=== PATIENT | male | born 1945 | race Two or more races ===

== ENCOUNTER 2016-08-15 19:12 | Emergency (ER) | payer MEDICARE, MEDICAID ==
[~2016-08-15] VITALS: Ht 172.7 cm; Wt 99.8 kg
[~2016-08-15 19:12] MED LIST: CARV25TA55 PO; LISIPOW PO; LOVA40TA72 PO; PHEN100C70 PO; PHEN32.49 PO; PREVASTATIN PO; PRIM250T29 PO; TIMO0.5S3 EACHEYE; TRAV0.00 EACHEYE
[2016-08-15 22:44] VITALS: BP 156/101
[2016-08-15] MEDS ORDERED: LET TOPICAL SOLN 5 ML TOP ONE (23:00)
[2016-08-16] MEDS ORDERED: BACITRACIN TOP OINT 1 UD PKG TOP ONE
[2016-08-16] MEDS ORDERED: HYDROcodone-ACET 10/325MG TAB PO ONE
== END 2016-08-16 01:07 | disposition home or self-care (01) ==
LOC: EDBD 19:12 → ER 19:20
DX: S01.01XA Laceration without foreign body of scalp, initial encounter (principal); J45.909 Unspecified asthma, uncomplicated; I10 Essential (primary) hypertension; H54.0 Blindness, both eyes; Z79.899 Other long term (current) drug therapy; W18.39XA Other fall on same level, initial encounter; Y93.89 Activity, other specified; Y92.89 Other specified places as the place of occurrence of the external cause; Y99.8 Other external cause status
CPT/HCPCS: 12002; 70450; 99284; J3490

== ENCOUNTER 2017-01-25 14:31 | Observation (INO) | payer MEDICARE, MEDICAID ==
[~2017-01-25] VITALS: Ht 175.3 cm; Wt 99.8 kg
[2017-01-25 15:23] LABS: Basophils # (auto) 0.1 uL; Basophils % (auto) 1.2 % (0.0-2.0); Eosinophils # (auto) 0.9 uL; Hematocrit 37.5 % (41.0-53.0); Hemoglobin 12.7 g/dL (13.5-17.5); Lymphocytes # (auto) 1.8 uL; Lymphocytes % (auto) 22.1 % (10.0-50.0); Mean Corpuscular Hemoglobin 32.1 pg (28.0-32.0); Mean Corpuscular Hgb Conc. 33.9 g/dL (32.0-36.0); Mean Corpuscular Volume 94.8 fL (80.0-100.0); Mean Platelet Volume 7.8 fL (6.9-10.8); Monocytes % (auto) 11.5 % (0.0-12.0); Neutrophils # (auto) 4.5 uL; Neutrophils % (auto) 54.2 % (37.0-80.0); Nucleated Red Blood Cells % 0.1 %; Platelet Count (auto) 222 10^3/uL (140-450); Red Cell Distribution Width 13.9 % (11.8-14.3); White Blood Cell 8.3 10^3/uL (4.4-10.8)
[2017-01-25 15:46] LABS: Albumin 3.1 g/dL (3.4-5.0); BUN/Creatinine Ratio 12.5; Bilirubin, Total 0.3 mg/dL (0.2-1.0); Calcium 8.1 mg/dL (8.5-10.1); Potassium 4.1 mmol/L (3.5-5.1); Total Protein 7.3 g/dL (6.4-8.2)
[2017-01-25 17:22] LABS: INR 1.01 (0.9-1.15); Partial Thromboplastin Time 27.4 sec (22.64-33.71)
[2017-01-25] MEDS ORDERED: SODIUM CHLORIDE 0.9% 1,000 ML IV ONE (17:45)
[2017-01-25] MEDS ORDERED: KETOROLAC TROMETH 30 MG/ML 1ML VIAL IV ONE (18:00)
[2017-01-25 20:39] LABS: Urine Bilirubin Negative (Negative); Urine Blood Negative /uL (Negative); Urine Color Yellow (Yellow); Urine Glucose Normal (Normal); Urine Ketone Negative (Negative); Urine Mucus FEW (None Seen); Urine Nitrite Negative (Negative); Urine RBC <1 /hpf (0 - 3); Urine Squamous Epithelial Cell FEW /hpf (<5); Urine Urobilinogen Normal (Negative); Urine pH 5.5 (5.0-8.0)
[2017-01-25 22:01] VITALS: BP 163/80
== END 2017-01-25 22:28 | disposition home or self-care (01) | DRG 694 ==
LOC: EDBD 14:31 → ER 14:42 → OVERFLOW 16:58 → ER 22:28
PROVIDERS: ADMIT Family Medicine; ATTEND Family Medicine
DX: N20.0 Calculus of kidney (principal); D64.9 Anemia, unspecified; I11.9 Hypertensive heart disease without heart failure; E78.5 Hyperlipidemia, unspecified; F32.9 Major depressive disorder, single episode, unspecified; F41.9 Anxiety disorder, unspecified; H40.9 Unspecified glaucoma; I51.7 Cardiomegaly; Z87.820 Personal history of traumatic brain injury; Z82.5 Family history of asthma and other chronic lower respiratory diseases; Z82.49 Family history of ischemic heart disease and other diseases of the circulatory system
CPT/HCPCS: 36415; 71010; 74176; 80053; 81001; 83735; 85025; 85610; 85730; 93005; 96361; 96374; 99285; G0378; J1885; J7030

== ENCOUNTER 2017-09-25 14:45 | Inpatient (IN) | payer MEDICARE, MEDICAID ==
[~2017-09-25] VITALS: Ht 175.3 cm; Wt 106.1 kg
[~2017-09-25 14:45] MED LIST changes: -TIMO0.5S3 EACHEYE; +TIMO0.5S38 EACHEYE
[2017-09-25] MEDS ORDERED: SODIUM CHLORIDE 0.9% 1,000 ML IV ONE (14:52)
[2017-09-25] MEDS ORDERED: LEVOFLOXACIN 500MG 100 ML IV ONE (15:00)
[2017-09-25] MEDS ORDERED: ACETAMINOPHEN 325 MG TAB PO ONE (15:00)
[2017-09-25 15:20] LABS: Basophils # (auto) 0.1 uL; Eosinophils # (auto) 0.3 uL; Eosinophils % (auto) 2.6 % (0.0-7.0); Hematocrit 41.9 % (41.0-53.0); Hemoglobin 14.3 g/dL (13.5-17.5); Lymphocytes # (auto) 0.9 uL; Lymphocytes % (auto) 7.1 % (10.0-50.0); Mean Corpuscular Hemoglobin 32.3 pg (28.0-32.0); Monocytes # (auto) 0.3 uL; Monocytes % (auto) 2.5 % (0.0-12.0); Neutrophils % (auto) 86.8 % (37.0-80.0); Platelet Count (auto) 167 10^3/uL (140-450); Red Blood Cells 4.41 10^6/uL (4.5-5.90); Red Cell Distribution Width 14.1 % (11.8-14.3); White Blood Cell 12.7 10^3/uL (4.4-10.8)
[2017-09-25 15:32] LABS: INR 0.97 (0.9-1.15); Partial Thromboplastin Time 24.4 sec (23.78-33.04); Prothrombin Time 10.4 sec (9.27-12.13)
[2017-09-25 15:34] LABS: Lactic Acid w/Reflex 2.3 mmol/L (0.4-2.0)
[2017-09-25 15:41] LABS: Alanine Aminotransferase 33 U/L (16-61); Albumin 3.7 g/dL (3.4-5.0); Alkaline Phosphatase 135 U/L (45-117); Anion Gap 7 (5-15); Aspartate Aminotransferase 22 U/L (15-37); BUN/Creatinine Ratio 10.9; Bilirubin, Total 0.2 mg/dL (0.2-1.0); Blood Urea Nitrogen 10 mg/dL (7-18); Calcium 8.5 mg/dL (8.5-10.1); Carbon Dioxide 27 mmol/L (21-32); Chloride 107 mmol/L (98-107); GFR African American 104 mL/min; GFR Non-African American 86 mL/min; Glucose 81 mg/dL (74-106); Magnesium 2.4 mg/dL (1.6-2.6); Potassium 4.2 mmol/L (3.5-5.1); Sodium 141 mmol/L (136-145); Total Protein 8.4 g/dL (6.4-8.2)
[2017-09-25] MEDS ORDERED: LORazepam 0.5 MG TAB PO PRN (16:45)
[2017-09-25] MEDS ORDERED: MORPHINE SULF INJ 2 MG/ML SYRINGE 1ML IV PRN (16:45)
[2017-09-25] MEDS ORDERED: NITROGLYCERIN 0.4 MG SL TAB SL PRN (16:45)
[2017-09-25] MEDS ORDERED: DEXTROSE (50%) 50ML SYRG IV PRN (16:45)
[2017-09-25] MEDS ORDERED: ACETAMINOPHEN 500 MG TAB PO PRN (16:45)
[2017-09-25] MEDS ORDERED: LACTULOSE 20Gm/30ML SOLN PO PRN (16:45)
[2017-09-25] MEDS ORDERED: PROMETHAZINE HCL 25 MG/ML 1ML IV PRN (16:45)
[2017-09-25] MEDS ORDERED: cefTRIAXone 1GM/10ml IVPUSH 10 ML IV ONE (16:45)
[2017-09-25] MEDS ORDERED: TEMAZEPAM 15 MG CAP PO PRN (16:45)
[2017-09-25] MEDS ORDERED: PREVASTATIN PO PRN (16:45)
[2017-09-25] MEDS ORDERED: ASPirin 81 mg TAB PO ONE (17:00)
[2017-09-25 17:10] LABS: CRP High Sensitivity 0.36 mg/dL (< 0.3)
[2017-09-25] MEDS: SODIUM CHLORIDE 0.9% 1,000 ML IV SCH (17:22)
[2017-09-25] MEDS: ENOXAPARIN SOD 40 MG/0.4 ML SYRINGE SC SCH (17:22)
[2017-09-25] MEDS: NITROGLYCERIN 0.2MG/HR TOPICAL PATCH TD SCH (17:22)
[2017-09-25] MEDS: ACCU-CHEK COMFORT CURVE STRIP VI SCH ×2 (17:22→22:00)
[2017-09-25] MEDS ORDERED: TRAVOPROST EACHEYE SCH (18:00)
[2017-09-25 18:14] VITALS: BP 127/79
[2017-09-25 22:00] VITALS: BP 118/63
[2017-09-25] MEDS ORDERED: PATIENTS OWN MEDICATION (Lovastatin 40 MG) PO SCH (22:00)
[2017-09-25] MEDS ORDERED: PRIMIDONE 250 MG PO SCH (22:00)
[2017-09-25] MEDS ORDERED: PATIENTS OWN MEDICATION (Carvedilol 25 MG) PO SCH (22:00)
[2017-09-25] MEDS: PHENobarbital 32.4 MG TAB PO SCH (22:40)
[2017-09-25] MEDS: LATANOPROST 0.005 % OPTH(EYE) SOL 2.5ML EACHEYE SCH (22:40)
[2017-09-25] MEDS: TIMOLOL MAL 0.5% OPTH(EYE) SOL 5ML EACHEYE SCH (22:40)
[2017-09-25] MEDS: PHENYTOIN SODIUM 100 MG CAP PO SCH (22:41)
[2017-09-25] MEDS: CARVEDILOL 12.5 MG TAB PO SCH (22:41)
[2017-09-25] MEDS: PRIMIDONE 50 MG TAB PO SCH (22:41)
[2017-09-25] MEDS: PRAVASTATIN SODIUM 20 MG TAB PO SCH (22:41)
[2017-09-25] MEDS: InsuLIN REG 1unit/0.01ml Soln (100units/ml) SC SCH (22:42)
[2017-09-25] MEDS ORDERED: PRAV20TA3 PO (23:21)
[2017-09-25] MEDS ORDERED: POTA10TA51 PO (23:21)
[2017-09-25] MEDS ORDERED: ATOR40TA52 PO (23:21)
[2017-09-25] MEDS ORDERED: AMLO5TAB2 PO (23:22)
[2017-09-25] MEDS ORDERED: FURO40TA4 PO (23:22)
[2017-09-26] MEDS: MORPHINE SULFATE 4 MG/ML SYR/VIAL IV PRN ×2 (00:03→05:56)
[2017-09-26] MEDS: CLINDAMYCIN 600MG IV 50 ML IV SCH ×3 (00:41→18:03)
[2017-09-26] MEDS: SODIUM CHLORIDE 0.9% 1,000 ML IV SCH ×3 (02:33→22:45)
[2017-09-26 05:00] VITALS: BP 108/65
[2017-09-26] MEDS: PHENYTOIN SODIUM 100 MG CAP PO SCH ×3 (05:55→22:48)
[2017-09-26] MEDS: InsuLIN REG 1unit/0.01ml Soln (100units/ml) SC SCH ×4 (05:55→22:00)
[2017-09-26] MEDS: ACCU-CHEK COMFORT CURVE STRIP VI SCH ×4 (05:55→23:08)
[2017-09-26 09:00] VITALS: BP 126/70
[2017-09-26 09:18] LABS: Hematocrit 39.8 % (41.0-53.0); Hemoglobin 13.4 g/dL (13.5-17.5); Mean Corpuscular Hemoglobin 32.2 pg (28.0-32.0); Mean Corpuscular Hgb Conc. 33.6 g/dL (32.0-36.0); Mean Corpuscular Volume 95.8 fL (80.0-100.0); Platelet Count (auto) 146 10^3/uL (140-450); Red Blood Cells 4.16 10^6/uL (4.5-5.90); Red Cell Distribution Width 14.6 % (11.8-14.3); White Blood Cell 14.4 10^3/uL (4.4-10.8)
[2017-09-26 09:24] LABS: Cholesterol 126 mg/dL (< 200); HDL Cholesterol 43 mg/dL (40-59); LDL Cholesterol 75 mg/dL (< 100); Triglycerides 133 mg/dL (< 150)
[2017-09-26 09:25] LABS: Basophils % (manual) 0 (0.0-2.0); Blast Cells 0; Metamyelocytes % 0; Myelocytes % 0; Promyelocytes % 0; Reactive Lymphocytes 0
[2017-09-26] MEDS ORDERED: PATIENTS OWN MEDICATION (Lisinopril 40 MG) PO SCH (10:00)
[2017-09-26] MEDS: TIMOLOL MAL 0.5% OPTH(EYE) SOL 5ML EACHEYE SCH (10:00)
[2017-09-26] MEDS: PRIMIDONE 50 MG TAB PO SCH ×2 (10:32→22:49)
[2017-09-26] MEDS: LISINOPRIL 20 MG TAB PO SCH (10:33)
[2017-09-26] MEDS: CARVEDILOL 12.5 MG TAB PO SCH ×2 (10:34→23:05)
[2017-09-26] MEDS: ASPirin 81 mg TAB PO SCH (10:35)
[2017-09-26] MEDS: PANTOPRAZOLE 40 MG TAB PO SCH (10:35)
[2017-09-26] MEDS: ENOXAPARIN SOD 40 MG/0.4 ML SYRINGE SC SCH (10:36)
[2017-09-26] MEDS: NITROGLYCERIN 0.2MG/HR TOPICAL PATCH TD SCH (10:37)
[2017-09-26] MEDS: cefTRIAXone 1GM/10ml IVPUSH 10 ML IV SCH (10:38)
[2017-09-26 12:57] LABS: Band Neutrophils % (manual) 1; Eosinophils % (manual) 3 (0-7); Lymphocytes % (manual) 14 (10.0-50.0); Monocytes % (manual) 8 (0-12)
[2017-09-26 13:00] VITALS: BP 134/70
[2017-09-26] MEDS ORDERED: LORazepam 2MG/ML-1ML VIAL IV PRN (17:00)
[2017-09-26 17:10] VITALS: BP 113/68
[2017-09-26 22:00] VITALS: BP 127/61
[2017-09-26] MEDS: PRAVASTATIN SODIUM 20 MG TAB PO SCH (22:46)
[2017-09-26] MEDS: PHENobarbital 32.4 MG TAB PO SCH (22:47)
[2017-09-27] MEDS: LATANOPROST 0.005 % OPTH(EYE) SOL 2.5ML EACHEYE SCH ×2 (02:17→21:55)
[2017-09-27] MEDS: CLINDAMYCIN 600MG IV 50 ML IV SCH ×3 (02:17→18:18)
[2017-09-27] MEDS: TIMOLOL MAL 0.5% OPTH(EYE) SOL 5ML EACHEYE SCH ×3 (02:17→21:55)
[2017-09-27 05:00] VITALS: BP 140/79
[2017-09-27] MEDS: InsuLIN REG 1unit/0.01ml Soln (100units/ml) SC SCH ×4 (06:40→21:55)
[2017-09-27] MEDS: PHENYTOIN SODIUM 100 MG CAP PO SCH ×3 (06:40→21:55)
[2017-09-27] MEDS: ACCU-CHEK COMFORT CURVE STRIP VI SCH ×4 (06:41→21:56)
[2017-09-27 07:16] LABS: Basophils # (auto) 0 uL; Basophils % (auto) 0.5 % (0.0-2.0); Eosinophils # (auto) 0.2 uL; Eosinophils % (auto) 2.4 % (0.0-7.0); Hematocrit 35.1 % (41.0-53.0); Hemoglobin 11.8 g/dL (13.5-17.5); Lymphocytes # (auto) 1.4 uL; Mean Corpuscular Hemoglobin 31.8 pg (28.0-32.0); Mean Corpuscular Hgb Conc. 33.7 g/dL (32.0-36.0); Mean Corpuscular Volume 94.5 fL (80.0-100.0); Monocytes # (auto) 1.1 uL; Monocytes % (auto) 13.6 % (0.0-12.0); Neutrophils # (auto) 5.1 uL; Neutrophils % (auto) 65.5 % (37.0-80.0); Platelet Count (auto) 152 10^3/uL (140-450); Red Blood Cells 3.72 10^6/uL (4.5-5.90); Red Cell Distribution Width 14.1 % (11.8-14.3); White Blood Cell 7.9 10^3/uL (4.4-10.8)
[2017-09-27] MEDS: SODIUM CHLORIDE 0.9% 1,000 ML IV SCH ×2 (08:33→18:36)
[2017-09-27 09:00] VITALS: BP 151/92
[2017-09-27] MEDS: ASPirin 81 mg TAB PO SCH (09:59)
[2017-09-27] MEDS: PANTOPRAZOLE 40 MG TAB PO SCH (09:59)
[2017-09-27] MEDS: PRIMIDONE 50 MG TAB PO SCH ×2 (09:59→21:55)
[2017-09-27] MEDS: cefTRIAXone 1GM/10ml IVPUSH 10 ML IV SCH (10:01)
[2017-09-27] MEDS: LISINOPRIL 20 MG TAB PO SCH (10:01)
[2017-09-27] MEDS: ENOXAPARIN SOD 40 MG/0.4 ML SYRINGE SC SCH (10:01)
[2017-09-27] MEDS: CARVEDILOL 12.5 MG TAB PO SCH ×2 (10:03→21:55)
[2017-09-27] MEDS: NITROGLYCERIN 0.2MG/HR TOPICAL PATCH TD SCH (10:19)
[2017-09-27 13:00] VITALS: BP 124/76
[2017-09-27 17:00] VITALS: BP 144/81
[2017-09-27 19:20] LABS: Hematocrit 35.5 % (41.0-53.0); Hemoglobin 12.3 g/dL (13.5-17.5)
[2017-09-27] MEDS: PHENobarbital 32.4 MG TAB PO SCH (21:55)
[2017-09-27] MEDS: PRAVASTATIN SODIUM 20 MG TAB PO SCH (21:55)
[2017-09-27 22:00] VITALS: BP 153/76
[2017-09-28] MEDS: CLINDAMYCIN 600MG IV 50 ML IV SCH ×3 (00:23→17:34)
[2017-09-28] MEDS: SODIUM CHLORIDE 0.9% 1,000 ML IV SCH ×3 (05:27→22:38)
[2017-09-28] MEDS: PHENYTOIN SODIUM 100 MG CAP PO SCH ×3 (05:27→21:35)
[2017-09-28] MEDS: HYDROcodone-ACET 5/325MG TAB PO PRN ×3 (05:28→23:44)
[2017-09-28 05:37] VITALS: BP 150/71
[2017-09-28] MEDS: InsuLIN REG 1unit/0.01ml Soln (100units/ml) SC SCH ×4 (06:16→22:00)
[2017-09-28] MEDS: ACCU-CHEK COMFORT CURVE STRIP VI SCH ×4 (06:16→22:22)
[2017-09-28 08:00] VITALS: BP 155/86
[2017-09-28] MEDS ORDERED: ADENOSINE 89 MG in GIVE UN-DILUTED 0 ML IV ONE (08:45)
[2017-09-28] MEDS: cefTRIAXone 1GM/10ml IVPUSH 10 ML IV SCH (09:43)
[2017-09-28 12:24] VITALS: BP 178/101
[2017-09-28 12:53] VITALS: BP 153/84
[2017-09-28] MEDS: PANTOPRAZOLE 40 MG TAB PO SCH (15:06)
[2017-09-28] MEDS: PRIMIDONE 50 MG TAB PO SCH ×2 (15:08→22:26)
[2017-09-28] MEDS: LISINOPRIL 20 MG TAB PO SCH (15:09)
[2017-09-28] MEDS: CARVEDILOL 12.5 MG TAB PO SCH ×2 (15:10→22:22)
[2017-09-28] MEDS: ASPirin 81 mg TAB PO SCH (15:10)
[2017-09-28] MEDS: ENOXAPARIN SOD 40 MG/0.4 ML SYRINGE SC SCH (15:11)
[2017-09-28] MEDS: TIMOLOL MAL 0.5% OPTH(EYE) SOL 5ML EACHEYE SCH ×2 (15:12→22:36)
[2017-09-28] MEDS: NITROGLYCERIN 0.2MG/HR TOPICAL PATCH TD SCH (15:13)
[2017-09-28 17:00] VITALS: BP 135/80
[2017-09-28] MEDS: MORPHINE SULF INJ 2 MG/ML SYRINGE 1ML IV PRN ×2 (17:34→22:36)
[2017-09-28] MEDS: PRAVASTATIN SODIUM 20 MG TAB PO SCH (21:31)
[2017-09-28] MEDS: PHENobarbital 32.4 MG TAB PO SCH (21:35)
[2017-09-28 22:00] VITALS: BP 159/84
[2017-09-28] MEDS: LATANOPROST 0.005 % OPTH(EYE) SOL 2.5ML EACHEYE SCH (22:36)
[2017-09-29] MEDS: CLINDAMYCIN 600MG IV 50 ML IV SCH ×3 (00:29→17:00)
[2017-09-29] MEDS: PHENYTOIN SODIUM 100 MG CAP PO SCH ×2 (05:11→14:00)
[2017-09-29 05:30] VITALS: BP 158/85
[2017-09-29] MEDS: ACCU-CHEK COMFORT CURVE STRIP VI SCH ×3 (06:05→19:25)
[2017-09-29] MEDS: InsuLIN REG 1unit/0.01ml Soln (100units/ml) SC SCH ×3 (06:05→17:00)
[2017-09-29 08:00] VITALS: BP 153/96
[2017-09-29 08:56] VITALS: BP 153/96
[2017-09-29] MEDS: TIMOLOL MAL 0.5% OPTH(EYE) SOL 5ML EACHEYE SCH (08:59)
[2017-09-29] MEDS: ASPirin 81 mg TAB PO SCH (08:59)
[2017-09-29] MEDS: cefTRIAXone 1GM/10ml IVPUSH 10 ML IV SCH (08:59)
[2017-09-29] MEDS: PANTOPRAZOLE 40 MG TAB PO SCH (09:00)
[2017-09-29] MEDS: CARVEDILOL 12.5 MG TAB PO SCH (09:00)
[2017-09-29] MEDS: LISINOPRIL 20 MG TAB PO SCH (09:01)
[2017-09-29] MEDS: ENOXAPARIN SOD 40 MG/0.4 ML SYRINGE SC SCH (09:02)
[2017-09-29] MEDS: NITROGLYCERIN 0.2MG/HR TOPICAL PATCH TD SCH (09:02)
[2017-09-29] MEDS: PRIMIDONE 50 MG TAB PO SCH (09:32)
[2017-09-29] MEDS: MORPHINE SULF INJ 2 MG/ML SYRINGE 1ML IV PRN (09:33)
[2017-09-29] MEDS: SODIUM CHLORIDE 0.9% 1,000 ML IV SCH (10:33)
[2017-09-29 11:54] VITALS: BP 138/73
[2017-09-29 17:41] VITALS: BP 150/91
== END 2017-09-29 19:15 | disposition home or self-care (01) | DRG 720 ==
LOC: ER 14:45 → EDBD 14:45 → TELE 14:46 → TELE-CENTR 17:43
PROVIDERS: ADMIT Internal Medicine; ATTEND Family Medicine
DX: A41.9 Sepsis, unspecified organism (principal); I63.9 Cerebral infarction, unspecified; L03.116 Cellulitis of left lower limb; E11.9 Type 2 diabetes mellitus without complications; E66.9 Obesity, unspecified; E78.00 Pure hypercholesterolemia, unspecified; G40.409 Other generalized epilepsy and epileptic syndromes, not intractable, without status epilepticus; G47.10 Hypersomnia, unspecified; G47.30 Sleep apnea, unspecified; H40.9 Unspecified glaucoma; K59.00 Constipation, unspecified; H54.8 Legal blindness, as defined in USA; I10 Essential (primary) hypertension; J45.909 Unspecified asthma, uncomplicated; Z87.820 Personal history of traumatic brain injury; Z79.82 Long term (current) use of aspirin; Z79.899 Other long term (current) drug therapy; Z82.49 Family history of ischemic heart disease and other diseases of the circulatory system; Q04.0 Congenital malformations of corpus callosum; Z82.5 Family history of asthma and other chronic lower respiratory diseases; Z87.442 Personal history of urinary calculi; Z79.4 Long term (current) use of insulin; Z82.61 Family history of arthritis; Z68.34 Body mass index [BMI] 34.0-34.9, adult
CPT/HCPCS: 36415; 70450; 70551; 71045; 73600; 73630; 74176; 78452; 80053; 80061; 82150; 82550; 82962; 83036; 83516; 83605; 83690; 83735; 83880; 84484; 84550; 85007; 85014; 85018; 85025; 85027; 85379; 85610; 85652; 85730; 86141; 86225; 86235; 86431; 87040; 93005; 93017; 93306; 93886; 93925; 96372; 96374; 96375; 97163; J0153; J0696; J1956; J3490

== ENCOUNTER → 2018-02-02 | Outpatient (CLI) | payer MEDICARE, MEDICAID ==
[~2018-02-02] MED LIST changes: +AMLO5TAB13 PO; +ATOR40TA52 PO; +FURO40TA4 PO; -LISIPOW PO; -LOVA40TA72 PO; -PHEN32.49 PO; +POTA10TA51 PO; +PRAV20TA3 PO; -PREVASTATIN PO
[2018-02-02 12:20] LABS: Folate (Folic Acid) 18.52 ng/mL (5.38-24)
== END | disposition home or self-care (01) ==
LOC: LAB 11:12
PROVIDERS: ATTEND Psychiatry & Neurology Neurology
DX: I63.9 Cerebral infarction, unspecified (principal); G31.84 Mild cognitive impairment of uncertain or unknown etiology; G62.9 Polyneuropathy, unspecified; G40.309 Generalized idiopathic epilepsy and epileptic syndromes, not intractable, without status epilepticus; R51 Headache
CPT/HCPCS: 36415; 82607; 82746; 84155; 84165; 84443

== ENCOUNTER 2018-05-11 15:38 | Emergency (ER) | payer MEDICARE, MEDICAID ==
[~2018-05-11] VITALS: Ht 180.3 cm; Wt 99.8 kg
[2018-05-11 15:45] VITALS: BP 164/82
== END 2018-05-11 16:35 | disposition home or self-care (01) ==
LOC: ER 15:41
DX: B02.9 Zoster without complications (principal); E11.9 Type 2 diabetes mellitus without complications; E78.5 Hyperlipidemia, unspecified; I10 Essential (primary) hypertension; Z90.49 Acquired absence of other specified parts of digestive tract; Z79.899 Other long term (current) drug therapy; Z87.442 Personal history of urinary calculi

== ENCOUNTER 2020-06-27 08:44 | Inpatient (IN) | payer MEDICARE, MEDICAID ==
[~2020-06-27] VITALS: Ht 175.3 cm; Wt 111.5 kg
[~2020-06-27 08:44] MED LIST changes: +AMLO-489 PO; -AMLO5TAB13 PO; +PHEN100C PO; -PHEN100C70 PO; -TIMO0.5S38 EACHEYE; +TIMO0.5S66 EACHEYE
[2020-06-27] MEDS ORDERED: HYDROCORTISONE 2.5% TOPICAL CREAM 30GM TUBE TOP ONE (09:30)
[2020-06-27] MEDS ORDERED: SODIUM CHLORIDE 0.9% 1,000 ML IV ONE ×3 (09:30→12:00)
[2020-06-27] MEDS ORDERED: CLINDAMYCIN 600MG IV 50 ML IV ONE (09:45)
[2020-06-27] MEDS ORDERED: cefTRIAXone 1GM/50ML D5W 50 ML IV ONE (09:45)
[2020-06-27 10:26] LABS: Basophils # (auto) 0.1 10 ^3/uL (0-0.2); Basophils % (auto) 0.5 % (0.0-2.0); Eosinophils # (auto) 0.6 10 ^3/uL (0-0.8); Eosinophils % (auto) 3.6 % (0.0-7.0); Hematocrit 41.6 % (41.0-53.0); Hemoglobin 13.6 g/dL (13.5-17.5); Lymphocytes # (auto) 1.7 10 ^3/uL (0.4-5.4); Lymphocytes % (auto) 9.5 % (10.0-50.0); Mean Corpuscular Hgb Conc. 32.8 g/dL (32.0-36.0); Mean Corpuscular Volume 97.6 fL (80.0-100.0); Monocytes # (auto) 2.1 10 ^3/uL (0-1.3); Monocytes % (auto) 11.5 % (0.0-12.0); Neutrophils # (auto) 13.5 10 ^3/uL (1.6-8.6); Neutrophils % (auto) 74.9 % (37.0-80.0); Platelet Count (auto) 317 10^3/uL (140-450); Red Blood Cells 4.26 10^6/uL (4.5-5.90); Red Cell Distribution Width 15.3 % (11.8-14.3)
[2020-06-27 10:40] LABS: INR 1.12 (0.9-1.15); Partial Thromboplastin Time 25.6 sec (23.0-31.2)
[2020-06-27 10:49] LABS: Alanine Aminotransferase 29 U/L (16-61); Albumin 2.7 g/dL (3.4-5.0); Anion Gap 3 (5-15); Aspartate Aminotransferase 23 U/L (15-37); Blood Urea Nitrogen 19 mg/dL (7-18); Calcium 8.4 mg/dL (8.5-10.1); Carbon Dioxide 28 mmol/L (21-32); Chloride 110 mmol/L (98-107); Glucose 107 mg/dL (74-106); Potassium 4.4 mmol/L (3.5-5.1); Sodium 141 mmol/L (136-145)
[2020-06-27 10:54] LABS: Alkaline Phosphatase 75 U/L (45-117); BUN/Creatinine Ratio 29.2; Bilirubin, Total < 0.1 mg/dL (0.2-1.0); GFR African American 154 mL/min; GFR Non-African American 127 mL/min; Total Protein 6.7 g/dL (6.4-8.2)
[2020-06-27] MEDS ORDERED: NITROGLYCERIN 0.4 MG SL TAB SL PRN (12:00)
[2020-06-27] MEDS ORDERED: MORPHINE SULF INJ 2 MG/ML SYRINGE 1ML IV PRN (12:00)
[2020-06-27] MEDS ORDERED: ENOXAPARIN SOD 30 MG/0.3 ML SYRINGE SC ONE (12:15)
[2020-06-27] MEDS ORDERED: DOXYCYCLINE 100MG/250ML 250 ML IV ONE (12:15)
[2020-06-27] MEDS: ACYCLOVIR 400 MG TAB PO SCH ×3 (14:06→22:44)
[2020-06-27] MEDS ORDERED: GABA300C10 PO (18:34)
[2020-06-27] MEDS: HYDROcodone-ACET 5/325MG TAB PO PRN (18:59)
[2020-06-27] MEDS ORDERED: diphenhdrAMINE HCL 50 MG/1 ML VL IV PRN (19:30)
[2020-06-27 22:00] VITALS: BP 135/88
[2020-06-27] MEDS: DOXYCYCLINE 100MG/250ML 250 ML IV SCH (22:43)
[2020-06-27] MEDS: FAMOTIDINE 20 MG TAB PO SCH (22:44)
[2020-06-27] MEDS: hydrALAZINE HCL 10 MG TAB PO SCH (22:44)
[2020-06-28 05:00] VITALS: BP 165/105
[2020-06-28] MEDS: ACYCLOVIR 400 MG TAB PO SCH ×2 (05:48→11:16)
[2020-06-28] MEDS: hydrALAZINE HCL 10 MG TAB PO SCH ×3 (05:48→21:49)
[2020-06-28] MEDS: ENOXAPARIN SOD 30 MG/0.3 ML SYRINGE SC SCH (08:48)
[2020-06-28] MEDS: DOXYCYCLINE 100MG/250ML 250 ML IV SCH ×2 (08:48→21:48)
[2020-06-28] MEDS: FAMOTIDINE 20 MG TAB PO SCH ×2 (08:48→21:48)
[2020-06-28 08:57] LABS: Basophils # (auto) 0.1 10 ^3/uL (0-0.2); Basophils % (auto) 0.5 % (0.0-2.0); Eosinophils % (auto) 6.2 % (0.0-7.0); Hematocrit 39.9 % (41.0-53.0); Hemoglobin 13.3 g/dL (13.5-17.5); Lymphocytes # (auto) 2.1 10 ^3/uL (0.4-5.4); Lymphocytes % (auto) 12.7 % (10.0-50.0); Mean Corpuscular Hemoglobin 32.4 pg (28.0-32.0); Mean Corpuscular Hgb Conc. 33.2 g/dL (32.0-36.0); Mean Corpuscular Volume 97.6 fL (80.0-100.0); Monocytes # (auto) 1.7 10 ^3/uL (0-1.3); Monocytes % (auto) 10.4 % (0.0-12.0); Neutrophils # (auto) 11.6 10 ^3/uL (1.6-8.6); Neutrophils % (auto) 70.2 % (37.0-80.0); Platelet Count (auto) 312 10^3/uL (140-450); Red Blood Cells 4.09 10^6/uL (4.5-5.90); Red Cell Distribution Width 15.1 % (11.8-14.3); White Blood Cell 16.5 10^3/uL (4.4-10.8)
[2020-06-28 09:19] LABS: BUN/Creatinine Ratio 29.5; Calcium 8.3 mg/dL (8.5-10.1); Potassium 3.9 mmol/L (3.5-5.1)
[2020-06-28] MEDS: HYDROcodone-ACET 5/325MG TAB PO PRN ×2 (12:40→23:10)
[2020-06-28 13:00] VITALS: BP 150/83
[2020-06-28 17:23] LABS: Urine Bacteria NONE SEEN /hpf (None Seen); Urine Blood Negative /uL (Negative); Urine Specific Gravity 1.013 (1.001-1.035); Urine WBC <1 /hpf (0 - 3)
[2020-06-28] MEDS: SILVER SULFADIAZINE 1 % TOPICAL CREAM 50GM TOP SCH (21:49)
[2020-06-28 22:00] VITALS: BP 121/89
[2020-06-28] MEDS ORDERED: PHE100C PO (22:17)
[2020-06-29 05:00] VITALS: BP 129/83
[2020-06-29] MEDS: HYDROcodone-ACET 5/325MG TAB PO PRN (05:53)
[2020-06-29] MEDS: hydrALAZINE HCL 10 MG TAB PO SCH ×3 (07:33→22:08)
[2020-06-29 08:32] VITALS: BP 135/85
[2020-06-29] MEDS: DOXYCYCLINE 100MG/250ML 250 ML IV SCH ×2 (10:21→22:08)
[2020-06-29] MEDS: FAMOTIDINE 20 MG TAB PO SCH (10:21)
[2020-06-29] MEDS: ENOXAPARIN SOD 30 MG/0.3 ML SYRINGE SC SCH (10:22)
[2020-06-29] MEDS: SILVER SULFADIAZINE 1 % TOPICAL CREAM 50GM TOP SCH ×2 (10:22→22:10)
[2020-06-29 13:09] VITALS: BP 140/86
[2020-06-29 16:36] VITALS: BP 132/80
[2020-06-29 22:00] VITALS: BP 103/72
[2020-06-29] MEDS: PRIMIDONE 50 MG TAB PO SCH (22:09)
[2020-06-29] MEDS: PHENYTOIN SODIUM 100 MG CAP PO SCH (22:10)
[2020-06-29] MEDS: FAMOTIDINE (10MG/ML) 2ML VL IV SCH (22:11)
[2020-06-29] MEDS: methylPREDNISolone SOD SUCC 40 MG/ML VL IV SCH (22:11)
[2020-06-30] MEDS: MORPHINE SULF INJ 2 MG/ML SYRINGE 1ML IV PRN ×2 (00:37→21:24)
[2020-06-30 05:00] VITALS: BP 119/97
[2020-06-30] MEDS: hydrALAZINE HCL 10 MG TAB PO SCH ×3 (06:39→22:08)
[2020-06-30 09:00] VITALS: BP 139/95
[2020-06-30] MEDS: methylPREDNISolone SOD SUCC 40 MG/ML VL IV SCH ×2 (11:57→22:06)
[2020-06-30] MEDS: FAMOTIDINE (10MG/ML) 2ML VL IV SCH ×2 (11:57→22:05)
[2020-06-30] MEDS: DOXYCYCLINE 100MG/250ML 250 ML IV SCH ×2 (11:58→22:06)
[2020-06-30] MEDS: PHENYTOIN SODIUM 100 MG CAP PO SCH ×2 (11:58→22:06)
[2020-06-30] MEDS: PRIMIDONE 50 MG TAB PO SCH ×2 (11:58→22:07)
[2020-06-30] MEDS: ENOXAPARIN SOD 30 MG/0.3 ML SYRINGE SC SCH (11:59)
[2020-06-30] MEDS: SILVER SULFADIAZINE 1 % TOPICAL CREAM 50GM TOP SCH ×2 (11:59→22:07)
[2020-06-30 12:32] VITALS: BP 124/66
[2020-06-30 16:40] VITALS: BP 113/73
[2020-06-30 16:48] LABS: Basophils # (auto) 0 10 ^3/uL (0-0.2); Basophils % (auto) 0.1 % (0.0-2.0); Eosinophils # (auto) 0.1 10 ^3/uL (0-0.8); Eosinophils % (auto) 0.7 % (0.0-7.0); Hematocrit 42.5 % (41.0-53.0); Hemoglobin 14.3 g/dL (13.5-17.5); Lymphocytes # (auto) 1.4 10 ^3/uL (0.4-5.4); Mean Corpuscular Hemoglobin 32.9 pg (28.0-32.0); Mean Corpuscular Hgb Conc. 33.7 g/dL (32.0-36.0); Mean Corpuscular Volume 97.5 fL (80.0-100.0); Monocytes # (auto) 1.9 10 ^3/uL (0-1.3); Monocytes % (auto) 10.6 % (0.0-12.0); Neutrophils # (auto) 14.5 10 ^3/uL (1.6-8.6); Neutrophils % (auto) 80.6 % (37.0-80.0); Platelet Count (auto) 314 10^3/uL (140-450); Red Blood Cells 4.36 10^6/uL (4.5-5.90); Red Cell Distribution Width 14.9 % (11.8-14.3)
[2020-06-30 17:33] LABS: Albumin 2.4 g/dL (3.4-5.0); BUN/Creatinine Ratio 30.6; Potassium 4.4 mmol/L (3.5-5.1)
[2020-06-30 17:36] LABS: Bilirubin, Total 0.3 mg/dL (0.2-1.0)
[2020-06-30] MEDS: Ensure Enlive Strawberry 8oz Bottle PO SCH (17:49)
[2020-06-30 21:41] VITALS: BP 110/78
[2020-07-01] MEDS: HYDROcodone-ACET 5/325MG TAB PO PRN ×2 (02:34→06:32)
[2020-07-01 05:34] VITALS: BP 159/86
[2020-07-01] MEDS: hydrALAZINE HCL 10 MG TAB PO SCH ×3 (06:17→22:00)
[2020-07-01] MEDS: Ensure Enlive Strawberry 8oz Bottle PO SCH ×2 (08:44→17:59)
[2020-07-01 09:00] VITALS: BP 105/80
[2020-07-01] MEDS: FAMOTIDINE (10MG/ML) 2ML VL IV SCH ×2 (10:08→20:55)
[2020-07-01] MEDS: PHENYTOIN SODIUM 100 MG CAP PO SCH ×2 (10:09→20:55)
[2020-07-01] MEDS: ENOXAPARIN SOD 30 MG/0.3 ML SYRINGE SC SCH (10:09)
[2020-07-01] MEDS: methylPREDNISolone SOD SUCC 40 MG/ML VL IV SCH ×2 (10:09→20:55)
[2020-07-01] MEDS: PRIMIDONE 50 MG TAB PO SCH ×2 (10:09→20:55)
[2020-07-01] MEDS: DOXYCYCLINE 100MG/250ML 250 ML IV SCH (10:09)
[2020-07-01] MEDS: SILVER SULFADIAZINE 1 % TOPICAL CREAM 50GM TOP SCH ×2 (10:10→20:56)
[2020-07-01 13:11] VITALS: BP 113/64
[2020-07-01] MEDS ORDERED: levoFLOXacin 750MG 150 ML IV ONE (14:00)
[2020-07-01 14:23] LABS: Basophils # (auto) 0 10 ^3/uL (0-0.2); Basophils % (auto) 0.3 % (0.0-2.0); Eosinophils # (auto) 0.4 10 ^3/uL (0-0.8); Eosinophils % (auto) 2.7 % (0.0-7.0); Hematocrit 42.9 % (41.0-53.0); Hemoglobin 14.7 g/dL (13.5-17.5); Lymphocytes # (auto) 1.2 10 ^3/uL (0.4-5.4); Lymphocytes % (auto) 9.1 % (10.0-50.0); Mean Corpuscular Hemoglobin 33.2 pg (28.0-32.0); Mean Corpuscular Hgb Conc. 34.2 g/dL (32.0-36.0); Mean Corpuscular Volume 97.1 fL (80.0-100.0); Monocytes # (auto) 1.4 10 ^3/uL (0-1.3); Monocytes % (auto) 10.1 % (0.0-12.0); Neutrophils # (auto) 10.7 10 ^3/uL (1.6-8.6); Neutrophils % (auto) 77.8 % (37.0-80.0); Platelet Count (auto) 314 10^3/uL (140-450); Red Blood Cells 4.41 10^6/uL (4.5-5.90); Red Cell Distribution Width 14.4 % (11.8-14.3); White Blood Cell 13.8 10^3/uL (4.4-10.8)
[2020-07-01 14:37] LABS: Albumin 2.4 g/dL (3.4-5.0); Calcium 8.1 mg/dL (8.5-10.1)
[2020-07-01] MEDS: MORPHINE SULF INJ 2 MG/ML SYRINGE 1ML IV PRN ×2 (14:37→21:00)
[2020-07-01 14:40] LABS: BUN/Creatinine Ratio 31.8; Bilirubin, Total 0.3 mg/dL (0.2-1.0)
[2020-07-01 17:03] VITALS: BP 119/77
[2020-07-01] MEDS: AMPICILLIN INJ 500 MG in SODIUM CHL 0.9% 50 ML IV SCH (17:59)
[2020-07-01 22:00] VITALS: BP 130/72
[2020-07-01] MEDS ORDERED: DOXYCYCLINE 100MG/250ML 250 ML IV SCH (22:00)
[2020-07-02] MEDS: AMPICILLIN INJ 500 MG in SODIUM CHL 0.9% 50 ML IV SCH ×5 (00:15→23:54)
[2020-07-02] MEDS: MORPHINE SULF INJ 2 MG/ML SYRINGE 1ML IV PRN ×3 (00:31→20:15)
[2020-07-02 05:00] VITALS: BP 133/68
[2020-07-02] MEDS: hydrALAZINE HCL 10 MG TAB PO SCH ×3 (05:30→22:14)
[2020-07-02 08:00] VITALS: BP 103/73
[2020-07-02] MEDS: Ensure Enlive Strawberry 8oz Bottle PO SCH ×2 (08:00→18:48)
[2020-07-02] MEDS ORDERED: AZITHROMYCIN 500MG/ 250ML 250 ML IV SCH (10:00)
[2020-07-02] MEDS: levoFLOXacin 750MG 150 ML IV SCH (10:31)
[2020-07-02] MEDS: SILVER SULFADIAZINE 1 % TOPICAL CREAM 50GM TOP SCH ×2 (10:32→21:58)
[2020-07-02] MEDS: PHENYTOIN SODIUM 100 MG CAP PO SCH ×2 (10:33→21:58)
[2020-07-02] MEDS: PRIMIDONE 50 MG TAB PO SCH ×2 (10:33→21:57)
[2020-07-02] MEDS: ZINC SULFATE 220mg CAP or TAB PO SCH (10:34)
[2020-07-02] MEDS: HYDROcodone-ACET 5/325MG TAB PO PRN (10:34)
[2020-07-02] MEDS: ENOXAPARIN SOD 40 MG/0.4 ML SYRINGE SC SCH (10:35)
[2020-07-02] MEDS: methylPREDNISolone SOD SUCC 40 MG/ML VL IV SCH ×2 (10:36→21:57)
[2020-07-02] MEDS: FAMOTIDINE (10MG/ML) 2ML VL IV SCH ×2 (10:36→21:57)
[2020-07-02] MEDS: CHOLECALCIFEROL (VITD3) 1,000UNIT=25mCg TAB PO SCH (10:36)
[2020-07-02 12:00] VITALS: BP 122/53
[2020-07-02 13:40] LABS: Hematocrit 40.7 % (41.0-53.0); Hemoglobin 13.8 g/dL (13.5-17.5); Mean Corpuscular Hemoglobin 32.8 pg (28.0-32.0); Mean Corpuscular Hgb Conc. 33.8 g/dL (32.0-36.0); Platelet Count (auto) 295 10^3/uL (140-450); White Blood Cell 10.5 10^3/uL (4.4-10.8)
[2020-07-02 13:47] LABS: Basophils % (manual) 0 (0.0-2.0); Blast Cells 0; Metamyelocytes % 0; Myelocytes % 0; Promyelocytes % 0; Reactive Lymphocytes 0
[2020-07-02 13:57] LABS: Potassium 4.8 mmol/L (3.5-5.1)
[2020-07-02 14:05] LABS: Albumin 1.9 g/dL (3.4-5.0); BUN/Creatinine Ratio 33.8; Bilirubin, Total 0.4 mg/dL (0.2-1.0); Calcium 7.7 mg/dL (8.5-10.1); Total Protein 5.4 g/dL (6.4-8.2)
[2020-07-02 14:20] LABS: Band Neutrophils % (manual) 6; Eosinophils % (manual) 1 (0-7); Lymphocytes % (manual) 11 (10.0-50.0); Monocytes % (manual) 18 (0-12)
[2020-07-02 16:00] VITALS: BP 110/70
[2020-07-02 22:00] VITALS: BP 109/75
[2020-07-03] MEDS: HYDROcodone-ACET 5/325MG TAB PO PRN (03:40)
[2020-07-03 05:00] VITALS: BP 127/88
[2020-07-03] MEDS: AMPICILLIN INJ 500 MG in SODIUM CHL 0.9% 50 ML IV SCH ×4 (05:35→23:52)
[2020-07-03] MEDS: hydrALAZINE HCL 10 MG TAB PO SCH ×3 (05:41→21:42)
[2020-07-03] MEDS: MORPHINE SULF INJ 2 MG/ML SYRINGE 1ML IV PRN (07:05)
[2020-07-03 07:50] VITALS: BP 126/80
[2020-07-03] MEDS: Ensure Enlive Strawberry 8oz Bottle PO SCH ×2 (08:33→18:26)
[2020-07-03] MEDS: SILVER SULFADIAZINE 1 % TOPICAL CREAM 50GM TOP SCH ×2 (10:26→21:30)
[2020-07-03] MEDS: levoFLOXacin 750MG 150 ML IV SCH (10:26)
[2020-07-03] MEDS: methylPREDNISolone SOD SUCC 40 MG/ML VL IV SCH ×2 (10:26→21:28)
[2020-07-03] MEDS: ENOXAPARIN SOD 40 MG/0.4 ML SYRINGE SC SCH (10:26)
[2020-07-03] MEDS: FAMOTIDINE (10MG/ML) 2ML VL IV SCH ×2 (10:27→21:28)
[2020-07-03] MEDS: PRIMIDONE 50 MG TAB PO SCH ×2 (10:27→21:29)
[2020-07-03] MEDS: PHENYTOIN SODIUM 100 MG CAP PO SCH ×2 (10:27→21:29)
[2020-07-03] MEDS: ZINC SULFATE 220mg CAP or TAB PO SCH (10:27)
[2020-07-03] MEDS: CHOLECALCIFEROL (VITD3) 1,000UNIT=25mCg TAB PO SCH (10:28)
[2020-07-03 12:00] VITALS: BP 102/63
[2020-07-03 16:00] VITALS: BP 115/74
[2020-07-03 22:00] VITALS: BP 128/69
[2020-07-04] MEDS: MORPHINE SULF INJ 2 MG/ML SYRINGE 1ML IV PRN ×3 (00:06→22:21)
[2020-07-04 05:00] VITALS: BP 109/62
[2020-07-04] MEDS: AMPICILLIN INJ 500 MG in SODIUM CHL 0.9% 50 ML IV SCH ×4 (06:47→23:59)
[2020-07-04] MEDS: hydrALAZINE HCL 10 MG TAB PO SCH ×3 (06:47→22:18)
[2020-07-04] MEDS: Ensure Enlive Strawberry 8oz Bottle PO SCH ×2 (08:15→18:32)
[2020-07-04 09:00] VITALS: BP 118/70
[2020-07-04 09:32] LABS: Hematocrit 37.3 % (41.0-53.0); Hemoglobin 12.6 g/dL (13.5-17.5); Mean Corpuscular Hemoglobin 33.4 pg (28.0-32.0); Mean Corpuscular Hgb Conc. 33.9 g/dL (32.0-36.0); Mean Corpuscular Volume 98.5 fL (80.0-100.0); Platelet Count (auto) 270 10^3/uL (140-450); Red Blood Cells 3.78 10^6/uL (4.5-5.90); Red Cell Distribution Width 15.5 % (11.8-14.3); White Blood Cell 7.6 10^3/uL (4.4-10.8)
[2020-07-04 09:50] LABS: Albumin 1.4 g/dL (3.4-5.0); Calcium 7.4 mg/dL (8.5-10.1); Magnesium 2.3 mg/dL (1.6-2.6); Potassium 3.8 mmol/L (3.5-5.1)
[2020-07-04] MEDS: FAMOTIDINE (10MG/ML) 2ML VL IV SCH ×2 (09:51→22:18)
[2020-07-04] MEDS: methylPREDNISolone SOD SUCC 40 MG/ML VL IV SCH ×2 (09:51→22:18)
[2020-07-04] MEDS: ZINC SULFATE 220mg CAP or TAB PO SCH (09:51)
[2020-07-04] MEDS: levoFLOXacin 750MG 150 ML IV SCH (09:51)
[2020-07-04] MEDS: PHENYTOIN SODIUM 100 MG CAP PO SCH ×2 (09:52→22:19)
[2020-07-04] MEDS: SILVER SULFADIAZINE 1 % TOPICAL CREAM 50GM TOP SCH ×2 (09:52→22:20)
[2020-07-04] MEDS: ENOXAPARIN SOD 40 MG/0.4 ML SYRINGE SC SCH (09:52)
[2020-07-04 09:53] LABS: BUN/Creatinine Ratio 31.3; Basophils % (manual) 0 (0.0-2.0); Bilirubin, Total 0.2 mg/dL (0.2-1.0); Blast Cells 0; Metamyelocytes % 0; Myelocytes % 0; Phosphorus 2.1 mg/dL (2.5-4.90); Promyelocytes % 0; Reactive Lymphocytes 0; Total Protein 5.1 g/dL (6.4-8.2)
[2020-07-04] MEDS: CHOLECALCIFEROL (VITD3) 1,000UNIT=25mCg TAB PO SCH (09:53)
[2020-07-04] MEDS: PRIMIDONE 50 MG TAB PO SCH ×2 (10:17→22:19)
[2020-07-04 10:33] LABS: Band Neutrophils % (manual) 2; Eosinophils % (manual) 3 (0-7); Lymphocytes % (manual) 14 (10.0-50.0); Monocytes % (manual) 13 (0-12)
[2020-07-04 12:53] VITALS: BP 110/72
[2020-07-04 17:00] VITALS: BP 106/64
[2020-07-04 22:00] VITALS: BP 123/76
[2020-07-05 05:00] VITALS: BP 113/70
[2020-07-05] MEDS: AMPICILLIN INJ 500 MG in SODIUM CHL 0.9% 50 ML IV SCH ×3 (05:56→18:30)
[2020-07-05] MEDS: hydrALAZINE HCL 10 MG TAB PO SCH ×3 (05:56→21:27)
[2020-07-05] MEDS: Ensure Enlive Strawberry 8oz Bottle PO SCH ×2 (08:00→18:30)
[2020-07-05 09:45] VITALS: BP 121/71
[2020-07-05] MEDS: FAMOTIDINE (10MG/ML) 2ML VL IV SCH ×2 (10:34→21:26)
[2020-07-05] MEDS: levoFLOXacin 750MG 150 ML IV SCH (10:34)
[2020-07-05] MEDS: methylPREDNISolone SOD SUCC 40 MG/ML VL IV SCH ×2 (10:41→21:27)
[2020-07-05] MEDS: ZINC SULFATE 220mg CAP or TAB PO SCH (10:41)
[2020-07-05] MEDS: PRIMIDONE 50 MG TAB PO SCH ×2 (10:42→21:28)
[2020-07-05] MEDS: PHENYTOIN SODIUM 100 MG CAP PO SCH ×2 (10:42→21:28)
[2020-07-05] MEDS: CHOLECALCIFEROL (VITD3) 1,000UNIT=25mCg TAB PO SCH (10:43)
[2020-07-05] MEDS: ENOXAPARIN SOD 40 MG/0.4 ML SYRINGE SC SCH (10:46)
[2020-07-05] MEDS: SILVER SULFADIAZINE 1 % TOPICAL CREAM 50GM TOP SCH ×2 (10:47→21:28)
[2020-07-05] MEDS: MORPHINE SULF INJ 2 MG/ML SYRINGE 1ML IV PRN ×2 (10:49→16:01)
[2020-07-05 13:57] VITALS: BP 115/74
[2020-07-05 16:28] VITALS: BP 117/76
[2020-07-05 22:00] VITALS: BP 125/55
[2020-07-06] MEDS: AMPICILLIN INJ 500 MG in SODIUM CHL 0.9% 50 ML IV SCH (00:27)
== END 2020-07-06 02:01 | disposition short-term general hospital (02) | DRG 720 ==
LOC: ER 08:44 → TELE 11:57 → TELE-WESTW 15:42 → WEST WING 06-30 17:26 → EAST 07-01 11:39
PROVIDERS: ADMIT Specialist; ATTEND Specialist
PROC: 05HC33Z Insertion of Infusion Device into Left Basilic Vein, Percutaneous Approach (ICD-10-PCS; principal; 2020-06-28)
PROC: B54NZZA Ultrasonography of Left Upper Extremity Veins, Guidance (ICD-10-PCS; 2020-06-28)
DX: A41.9 Sepsis, unspecified organism (principal); U07.1 COVID-19; E11.9 Type 2 diabetes mellitus without complications; L12.9 Pemphigoid, unspecified; D72.829 Elevated white blood cell count, unspecified; E78.5 Hyperlipidemia, unspecified; G40.909 Epilepsy, unspecified, not intractable, without status epilepticus; L03.119 Cellulitis of unspecified part of limb; H40.9 Unspecified glaucoma; L53.9 Erythematous condition, unspecified; I10 Essential (primary) hypertension; H54.8 Legal blindness, as defined in USA; Z86.73 Personal history of transient ischemic attack (TIA), and cerebral infarction without residual deficits; Z78.9 Other specified health status; Z82.61 Family history of arthritis; Z82.49 Family history of ischemic heart disease and other diseases of the circulatory system; Z83.6 Family history of other diseases of the respiratory system; Z90.49 Acquired absence of other specified parts of digestive tract
CPT/HCPCS: 36415; 71045; 80048; 80053; 80185; 81001; 83605; 83735; 83880; 84100; 84112; 84484; 85007; 85025; 85027; 85379; 85610; 85730; 86225; 86235; 86703; 87040; 87077; 87186; 87205; 87426; 96361; 96365; 96368; G0378; J0696; J1956; J3490